=== PATIENT | female | born 1965 | race Caucasian/White ===

== ENCOUNTER 2024-06-12 05:48 | Day surgery (SDC) | payer BC ==
[2024-06-12] MEDS: NA CHLORIDE 0.9% 1,000 ML ONE (06:00)
[2024-06-12] MEDS ORDERED: dexAMETHasone 10 MG/ML VIAL ONE (06:10)
[2024-06-12] MEDS ORDERED: FENTANYL CITR 100 MCG/2 ML ONE (06:11)
[2024-06-12] MEDS ORDERED: EPINEPHRINE 1 MG/ML VIAL ONE (06:11)
[2024-06-12] MEDS ORDERED: LIDOCAINE 1% MPF 5 ML VIAL ONE (06:11)
[2024-06-12] MEDS ORDERED: MIDAZOLAM HCL 2 MG/2 ML INJ ONE ×2 (06:12→06:51)
[2024-06-12] MEDS ORDERED: BUPIVACAINE 0.5% PF 10 ML VIAL ONE (06:13)
[2024-06-12] MEDS ORDERED: BUPIVACAINE 0.25% PF 30 ML VIAL ONE ×2 (06:13→10:40)
[2024-06-12] MEDS: CEFAZOLIN SODIUM 1 GM/VIAL ONE (06:15)
[2024-06-12] MEDS ORDERED: NS 0.9% VIAL 0 ML ONE (06:30)
[2024-06-12] MEDS ORDERED: BACITRACIN OINTMENT 14 GM TUBE TOP ONE (06:30)
[2024-06-12] MEDS ORDERED: ONDANSETRON 4 MG/2 ML VIAL ONE (07:13)
[2024-06-12] MEDS ORDERED: LIDOCAINE 2% MPF 5 ML VIAL ONE (07:13)
[2024-06-12] MEDS ORDERED: propofoL 200 MG/20 ML VIAL IV ONE (07:13)
[2024-06-12] MEDS ORDERED: dexAMETHasone 4 MG/ML VIAL ONE (08:12)
[2024-06-12] MEDS ORDERED: KETOROLAC 30 MG/ML INJ ONE (09:21)
[2024-06-12] MEDS: BUPIVACAINE 0.5% PF 10 ML VIAL ONE (09:40)
--- NOTE | 2024-06-12 10:26 | RAD REPORT ---
EXAM: Fluoroscopy use, Fluoroscopy <1 Hour HISTORY: [facility] MAIN LT LATERAL ANKLE COMPARISON: None FINDINGS: A total of 34 images were sent to PACS, during a fluoroscopically guided left ankle fixatio n. No radiologist was involved in protocoling or performance of the study, and no radiologist was present for the duration of the procedure. No interpretation of the saved images will be provided. Total fluoroscopy time: 0.6 minutes. IMPRESSION: Documentation of fluoroscopy use as above.
[2024-06-14 02:00] VITALS: BP 112/55; TEMP 97.8; O2SAT 100
== END 2024-06-12 11:50 | disposition home or self-care (01) ==
LOC: OR 05:48
PROVIDERS: ATTEND Podiatrist Foot & Ankle Surgery
PROC: 0MQR0ZZ Repair Left Ankle Bursa and Ligament, Open Approach (ICD-10-PCS; 2024-06-12)
PROC: 0MQR0ZZ Repair Left Ankle Bursa and Ligament, Open Approach (ICD-10-PCS; principal; 2024-06-12 07:00)
DX: S93.432A Sprain of tibiofibular ligament of left ankle, initial encounter (principal)
CPT/HCPCS: 82947 ×2; 76000; 27696; J2704; J1100 ×2; J2003 ×2; J2250 ×2; J3010; J0171; J2405; J2800; J7030; J0690; A4216